=== PATIENT | female | born 1950 | race Caucasian/White ===

== ENCOUNTER 2017-01-14 10:22 | Observation (INO) | payer MEDICARE, BC ==
[~2017-01-14] VITALS: Ht 165.1 cm; Wt 82.2 kg
[~2017-01-14 10:22] MED LIST: ASPI1TAB69 PO; CALCTAB23 PO; FLUTI44I INH; FURO40TA PO; LABE200T2 PO; MAXA5TAB2 PO; METH5TAB7 PO; MIDO5TAB PO; MONT10TA2 PO; MULT1TAB84 PO; PATA0.2S EACH EYE; POTA10TA2 PO; PRIS100T PO; PROT40TA PO; PYRI60 PO; SYMB160A INH; TAMO20TA6 PO; TRAZ150T75 PO; VITA100064 PO; XOPEAER4 INH; ZETI10TA5 PO
[2017-01-14] MEDS: LACTATED RINGER'S 1000 ML IV SCH (11:00)
[2017-01-14] MEDS ORDERED: SODIUM CHLORID 0.9% 500 ML IV SCH (11:00)
[2017-01-14] MEDS ORDERED: VANCOMYCIN HCL 1000 MG ON-CALL/NS 250 ML IV SCH ×2 (11:15)
[2017-01-14] MEDS ORDERED: METOPROLOL TARTRATE 25 MG TAB PO PRN (11:15)
[2017-01-14] MEDS ORDERED: INSULIN HUMAN REGULAR 1,000 UNITS/10 ML VIAL SQ PRN (11:15)
[2017-01-14] MEDS ORDERED: MEST60TA PO (11:17)
[2017-01-14] MEDS ORDERED: TOPA50TA7 PO (11:17)
[2017-01-14] MEDS ORDERED: PRIS100T PO (11:17)
[2017-01-14] MEDS ORDERED: MAXA10TA2 PO (11:17)
[2017-01-14] MEDS ORDERED: ALPH0.1S EACH EYE (11:17)
[2017-01-14] MEDS ORDERED: FLUT50SP EACH NARE (11:35)
[2017-01-14] MEDS ORDERED: LABE200T2 PO (11:36)
[2017-01-14] MEDS ORDERED: MIDO10TA PO (11:36)
[2017-01-14] MEDS ORDERED: LACTCAP8 PO (11:37)
[2017-01-14 11:39] VITALS: BP 123/63; PULSE 75; RESP 16; TEMP 99.8; O2SAT 94
[2017-01-14 11:47] LABS: AUTOMATED NEUTROPHIL # 4.6 TH/MM3 (1.8-7.7); BASOPHIL % 0.3 % (0.0-2.0); EOSINOPHIL % 0.7 % (0.0-4.0); HEMATOCRIT 38.1 % (35.0-46.0); HEMO FLAGS DIFF FINAL; LYMPH % 20.1 % (9.0-44.0); LYMPHOCYTE # 1.3 TH/MM3 (1.0-4.8); MEAN CELL VOLUME 87.3 FL (80.0-100.0); MEAN CORPUSCULAR HEMOGLOBIN 29.1 PG (27.0-34.0); MEAN CORPUSCULAR HGB CONC 33.3 % (32.0-36.0); MONO % 7.3 % (0.0-8.0); NEUT % 71.6 % (16.0-70.0); PLATELET COUNT 191 TH/MM3 (150-450); RED BLOOD COUNT 4.37 MIL/MM3 (4.00-5.30); RED CELL DISTRIBUTION WIDTH 12.9 % (11.6-17.2); WHITE BLOOD COUNT 6.5 TH/MM3 (4.0-11.0)
[2017-01-14] MEDS ORDERED: PHENYLEPH/NS 1000 MCG/10 ML SYR IV ONE (12:00)
[2017-01-14] MEDS ORDERED: PROPOFOL 200 MG/20 ML AMP IV ONE (12:00)
[2017-01-14] MEDS ORDERED: ONDANSETRON HCL 4 MG/2 ML VIAL IV PUSH ONE (12:00)
[2017-01-14] MEDS ORDERED: LIDOCAINE 1%/EPINEPHrine 1:100,000 SOLN 30 ML VIAL ONE (12:12)
[2017-01-14] MEDS ORDERED: BUPIVACAINE/EPINEPHRINE 0.5% PF 30 ML VIAL ONE (12:12)
[2017-01-14] MEDS ORDERED: SODIUM BICARBONATE 8.4% INJ 50 ML ONE (12:12)
[2017-01-14] MEDS ORDERED: LIDOCAINE HCL 1% 50 ML VIAL ONE (12:12)
[2017-01-14] MEDS ORDERED: DEXAMETHASONE SOD PHOS 4 MG/ML VIAL ONE (12:53)
[2017-01-14] MEDS ORDERED: MIDAZOLAM HCL 2 MG/2 ML VIAL ONE (12:53)
--- NOTE | 2017-01-14 14:09 | PD.OP ---
Operative Report Date of Surgery: Jan 14, 2017 Preoperative Diagnosis: RIH, symptomatic Postoperative Diagnosis: same, indirect IH Procedure: open repair RIH with mesh Anesthesia: general, LMA Surgeon: Elpidio Alexander Head Sulfide Operator(s): Cori VOSS Operation and Findings: EBL minimal. Indirect defect with preperitoneal fat protruding through the defect, reduced and broadly covered with progrip mesh. Elpidio Alexander MD Jan 14, 2017 14:09
[2017-01-14] MEDS ORDERED: fentaNYL CITRATE 250 MCG/5 ML AMP ONE (14:11)
[2017-01-14] MEDS ORDERED: SODIUM CHLORIDE 0.9% FLUSH 5 ML FLUSH IVF PRN (14:15)
[2017-01-14] MEDS ORDERED: ONDANSETRON HCL 4 MG/2 ML VIAL IV PRN (14:15)
[2017-01-14] MEDS ORDERED: oxyCODONE/ACETAMINOPHEN 5 MG/325 MG TAB PO PRN (14:15)
[2017-01-14] MEDS ORDERED: Post-op Orders (for Pharmacy) MISC XX ONE (14:15)
[2017-01-14] MEDS ORDERED: RIZATRIPTAN 10 MG PO SCH (14:30)
--- NOTE | 2017-01-14 15:26 | MP ---
cc: KARLOS ABARCA M.D. DATE OF SURGERY: 01/14/2017 PREOPERATIVE DIAGNOSIS Right inguinal hernia, symptomatic. POSTOPERATIVE DIAGNOSIS Right inguinal hernia, symptomatic. Right indirect inguinal hernia. PROCEDURE Open repair of right inguinal hernia with mesh. SURGEON Dr. Karlos Abarca. ORGAN RECOVERY COORDINATOR Cori Muhammad, BIPIN ANESTHESIA General with laryngeal mask. INDICATIONS This is a 66-year-old woman with multiple medical problems, who has a program pacemaker in place, who has developed a symptomatic right inguinal hernia confirmed on FINAL RA[employer] C[employer]TER laparoscopy. She presents for operative repair. Preoperatively the [employer] pacemaker rep was there to appropriately program the pacemaker so that electrocautery could be used. INTRAOPERATIVE FINDINGS No cardiac events. Right indirect inguinal hernia with large amount of preperitoneal fatty tissue protruding through the defect. Defect was broadly covered with ProGrip mesh, anatomic right side. Estimated blood loss minimal. This procedure was assisted by my nurse practitioner. The STITCHING DEPARTMENT SUPERVISOR's skill set was medically necessary to allow for adequate visualization of important anatomic structures to facilitate efficient surgical care of this patient. During the surgery, the surgical instrument repair specialist was at the back table providing appropriate instruments while the nurse practitioner was directly assisting me through the entirety of the case. DESCRIPTION OF PROCEDURE IN DETAIL The patient was identified as Maribell Laguna, taken to the operating room and placed in the supine position. Sequential compression devices were placed on bilateral lower extremities. Following induction of adequate general anesthesia and placement of a laryngeal mask anesthetic, the right groin was prepped and draped in usual sterile fashion with Betadine. A time-out procedure was performed. Following completion of time-out procedure to everyone's satisfaction within the room, proposed right groin incision was made with a marking pen and infiltrated with 0.5% Marcaine with epinephrine. Incision was carried out with scalpel and hemostasis controlled with electrocautery. Dissection continued posteriorly through Myrna's fascia to the level of the external oblique fascia. Through the external inguinal ring a large amount of fatty tissue was protruding. More local anesthetic was placed beneath the external oblique fascial fibers, they were opened in their direction using a scalpel and Metzenbaum scissor. Underlying ilioinguinal nerve branch was reflected inferiorly and avoided. The herniated preperitoneal fatty tissue was reduced from surrounding structures and was able to be reduced through the internal inguinal ring into the preperitoneal space. It was held in this position. The anatomic right-side ProGrip mesh was then brought on the surgical field and placed in position, sutured with 2-0 Vicryl the medial aspect adjacent to the pubic tubercle suture was placed also from the mesh to Alex's ligament and the shelving edge of the inguinal ligament inferiorly. The branch of the ilioinguinal nerve was allowed to pass through the opening of mesh and the superior medial portion of the mesh was fastened to the internal oblique fascia. The lateral portion of the mesh was tucked beneath the external oblique fascial fibers. Irrigation ensued, there was no evidence of bleeding. Remaining local anesthetic was placed in the operative field and around the ilioinguinal nerve. The external oblique fascia was then closed in running fashion overlying the mesh with a running 3-0 Vicryl taking care to avoid any underlying nerve structures. A single 3-0 Vicryl was placed in Myrna's fascia and the skin was approximated with running 4-0 Monocryl subcuticular suture. Dressings were applied, Mastisol, half-inch brown Steri-Strips, gauze and Tegaderm. The patient tolerated the procedure without apparent complication. Sponge, needle and instrument counts were correct at the end of the case. MD TUSHAR Isabel/GABY /2:08 PM /3:07 PM JACINDA
[2017-01-14 17:00] VITALS: BP 112/66; PULSE 70; RESP 18; TEMP 98.5; O2SAT 95
[2017-01-14] MEDS: TOPIRAMATE 25 MG TAB PO SCH (17:45)
[2017-01-14] MEDS: oxyCODONE/ACETAMINOPHEN 5 MG/325 MG TAB PO PRN ×2 (17:54→22:18)
[2017-01-14 20:00] VITALS: BP 110/55; PULSE 70; RESP 20; TEMP 98.8; O2SAT 94
[2017-01-14 20:52] VITALS: PULSE 70
[2017-01-14] MEDS ORDERED: PYRIDOSTIGMINE BROMIDE 60 MG TAB PO SCH ×2 (21:00)
[2017-01-14] MEDS ORDERED: traZODone HCL 50 MG TAB PO SCH (21:00)
[2017-01-14] MEDS ORDERED: MONTELUKAST SODIUM 10 MG TAB PO SCH (21:00)
[2017-01-14] MEDS ORDERED: LEVALBUTEROL INH SCH ×2 (21:00)
[2017-01-14] MEDS ORDERED: BRIMONIDINE OPTH EACH EYE SCH (21:00)
[2017-01-14] MEDS ORDERED: EZETIMIBE 10 MG TAB PO SCH (21:00)
[2017-01-14] MEDS ORDERED: BRIMONIDINE TARTRATE 0.15% OPHT SOLN 5 ML BTL EACH EYE SCH (21:00)
[2017-01-14] MEDS ORDERED: CALCIUM CARBONATE VITAMIN D PO SCH (21:00)
[2017-01-14] MEDS: PANTOPRAZOLE SOD 40 MG DELAYED RELEASE TAB PO SCH (21:40)
[2017-01-14] MEDS: LABETALOL HCL 200 MG TAB PO SCH (21:40)
[2017-01-14] MEDS: CALCIUM/VITAMIN D 250 MG/125 U TAB PO SCH (21:41)
[2017-01-14] MEDS: SODIUM CHLORIDE 0.9% FLUSH 5 ML FLUSH IVF SCH (21:41)
[2017-01-14] MEDS: BUDESONIDE-FORMOTEROL 160/4.5 MCG INHALER INH SCH (22:18)
[2017-01-14] MEDS: BRIMONIDINE TARTRATE 0.15% OPHT SOLN 5 ML BTL EACH EYE SCH (22:18)
[2017-01-15] VITALS: BP 96/44; PULSE 71; RESP 20; TEMP 98.5; O2SAT 94
[2017-01-15 04:00] VITALS: BP 117/62; PULSE 71; RESP 20; TEMP 97.6; O2SAT 95
[2017-01-15] MEDS: LABETALOL HCL 200 MG TAB PO SCH (07:38)
[2017-01-15] MEDS: CALCIUM/VITAMIN D 250 MG/125 U TAB PO SCH (07:38)
[2017-01-15] MEDS: PANTOPRAZOLE SOD 40 MG DELAYED RELEASE TAB PO SCH (07:39)
[2017-01-15] MEDS: TOPIRAMATE 25 MG TAB PO SCH (07:39)
[2017-01-15] MEDS: BRIMONIDINE TARTRATE 0.15% OPHT SOLN 5 ML BTL EACH EYE SCH (07:39)
[2017-01-15] MEDS: BUDESONIDE-FORMOTEROL 160/4.5 MCG INHALER INH SCH (07:40)
[2017-01-15] MEDS: SODIUM CHLORIDE 0.9% FLUSH 5 ML FLUSH IVF SCH (07:40)
[2017-01-15] MEDS ORDERED: PERC5TAB12 PO (07:59)
[2017-01-15 08:00] VITALS: BP 128/61; PULSE 72; RESP 17; TEMP 98.4; O2SAT 95
--- NOTE | 2017-01-15 08:02 | HHI.DS ---
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 CBC/BMP: 01/14/17 1130 Significant Findings Laboratory Tests Test 01/14/17 11:30 Neutrophils (%) (Auto) 71.6 % (16.0-70.0) PE at Discharge Looks great. RIH dressing dry and intact. Hospital Course Arrived through [facility], had pacer rep adjust pacer, had surgery, slow to wake postop, desired overnight stay. Had headache, niow resolved. Has been eating and drinking and has been up to bathroom. She desires DC. Pt Condition on Discharge: Good Discharge Disposition: Discharge Home Discharge Instructions DIET: Follow Instructions for: As Tolerated, No Restrictions Activities you can perform: Shower Only-No Bath Activities to Avoid: Strenuous Activity, Driving Elpidio Alexander MD Jan 15, 2017 08:02
[2017-01-15] MEDS ORDERED: FLUTICASONE PROPIONATE 50 MCG/ACT 16 GM NASAL SPRAY EACH NARE SCH (09:00)
[2017-01-15] MEDS ORDERED: MIDODRINE 5 MG TAB PO SCH (09:00)
[2017-01-15] MEDS ORDERED: [UNRECOGNIZED DRUG - OTHER] PO SCH (09:00)
[2017-01-15] MEDS ORDERED: DESVENLAFAXINE 100 MG PO SCH (09:00)
[2017-01-15] MEDS ORDERED: FUROSEMIDE 40 MG TAB PO SCH (09:00)
[2017-01-15] MEDS ORDERED: MULTIVITAMINS/MINERALS THERAPEUTIC TAB PO SCH (09:00)
[2017-01-15] MEDS ORDERED: TAMOXIFEN CITRATE 10 MG TAB PO SCH (09:00)
[2017-01-15] MEDS ORDERED: POTASSIUM CHLORIDE 10 MEQ CONTROLLED RELEASE TAB PO SCH (09:00)
[2017-01-15] MEDS ORDERED: ASPIRIN EC 81 MG TABEC PO SCH (09:00)
[2017-01-15] MEDS ORDERED: OLOPATADINE EACH EYE SCH (09:00)
[2017-01-15] MEDS ORDERED: OLOPATADINE OPTH EACH EYE SCH (09:00)
[2017-01-15] MEDS ORDERED: LACTOBACILLUS ACIDOPHILUS TAB PO SCH (09:00)
[2017-01-15] MEDS: LACTATED RINGER'S 1000 ML IV SCH (10:43)
[2017-01-15] MEDS: oxyCODONE/ACETAMINOPHEN 5 MG/325 MG TAB PO PRN (11:42)
== END 2017-01-15 11:52 | disposition home or self-care (01) ==
LOC: HSDC 10:22 → N07A 15:50
PROVIDERS: ADMIT Surgery Trauma Surgery; ATTEND Surgery Trauma Surgery
DX: K40.90 Unilateral inguinal hernia, without obstruction or gangrene, not specified as recurrent (principal); I49.8 Other specified cardiac arrhythmias; I10 Essential (primary) hypertension; G47.30 Sleep apnea, unspecified; Z95.0 Presence of cardiac pacemaker; Z85.3 Personal history of malignant neoplasm of breast
CPT/HCPCS: 00830; 49505; 85025; C1781; G0378; J1100; J2250; J2370; J2405; J3010; J3370; J7050; J7120

== ENCOUNTER 2017-11-20 09:23 | Observation (INO) | payer MEDICARE, BC ==
[~2017-11-20] VITALS: Ht 162.6 cm; Wt 80.6 kg
[~2017-11-20 09:23] MED LIST changes: +ALPH0.1S EACH EYE; -ASPI1TAB69 PO; +ASPI81TA23 PO; +CALC500T43 PO; -CALCTAB23 PO; +FLUT50SP EACH NARE; -FLUTI44I INH; +LACTCAP8 PO; +MAXA10TA2 PO; -MAXA5TAB2 PO; +MEST60TA PO; -METH5TAB7 PO; +MIDO10TA PO; -MIDO5TAB PO; -MULT1TAB84 PO; +MULTTAB79 PO; -PYRI60 PO; +TOPA50TA7 PO; -TRAZ150T75 PO; +TRAZ1TAB14 PO; -VITA100064 PO; -ZETI10TA5 PO
[2017-11-20] MEDS ORDERED: METOPROLOL TARTRATE 25 MG TAB PO PRN (09:45)
[2017-11-20] MEDS ORDERED: SODIUM CHLORID 0.9% 500 ML IV PRN (09:45)
[2017-11-20] MEDS ORDERED: CHLORHEXIDINE GLUCONATE 2 % 1 PACK (2 CLOTHS) TOPICAL PRN (09:45)
[2017-11-20] MEDS ORDERED: POVIDONE IODINE 5% (ANTISEPSIS KIT) 4 APPLICATIONS EACH NARE PRN (09:45)
[2017-11-20] MEDS ORDERED: MIRA25TA PO (09:55)
[2017-11-20] MEDS: LACTATED RINGER'S 1000 ML IV PRN ×2 (09:56→13:52)
[2017-11-20] MEDS ORDERED: SUCR1TAB PO (09:57)
[2017-11-20] MEDS ORDERED: AMPICILLIN/SULBAC 3 GM/NS 100 ML IV ONE ×2 (11:00)
[2017-11-20] MEDS ORDERED: ROCURONIUM INJ 50 MG/5 ML SYRINGE IV PUSH ONE (12:00)
[2017-11-20] MEDS ORDERED: PROPOFOL 200 MG/20 ML AMP IV ONE (12:00)
[2017-11-20] MEDS ORDERED: LIDOCAINE HCL 1% PF 5 ML SYRINGE OTHER ONE (12:00)
[2017-11-20] MEDS ORDERED: OXYMETAZOLINE HCL 0.05% 15 ML NASAL SPRAY ONE (12:03)
[2017-11-20] MEDS ORDERED: SUGAMMADEX SODIUM 200 MG/2 ML VIAL IV PUSH ONE (12:51)
[2017-11-20] MEDS ORDERED: *ENALAPRILAT 1.25 MG/ML VIAL PERIprocedural Use ONLY ONE (13:32)
--- NOTE | 2017-11-20 13:46 | EKG ---
Date Performed: 11/20/2017 Time Performed: 09:55:45 PTAGE: 66 years EKG: ELECTRONIC ATRIAL PACEMAKER ELECTRONIC VENTRICULAR PACEMAKER ABNORMAL RHYTHM ECG PREVIOUS TRACING : 09/10/2016 11.14 DOCTOR: Gigi Hobbs Interpretating Date/Time 11/20/2017 13:44:21
[2017-11-20] MEDS ORDERED: *morphine SULFATE 4 MG/ML PERIprocedure ONLY ONE (13:50)
[2017-11-20] MEDS ORDERED: *LABETALOL HCL 100 MG/20 ML VIAL PERIprocedural Use ONLY ONE (13:55)
[2017-11-20] MEDS ORDERED: ONDANSETRON HCL 4 MG/2 ML VIAL IV PUSH PRN (14:30)
[2017-11-20] MEDS ORDERED: DO NOT ADM ANY ANTICOAGULANT DRUGS PRN (14:45)
[2017-11-20 16:00] VITALS: BP 185/86; PULSE 84; RESP 20; TEMP 97.6; O2SAT 93
[2017-11-20 16:31] VITALS: O2SAT 98
[2017-11-20] MEDS ORDERED: LACTATED RINGER'S 1000 ML INJ 1,000 ML IV SCH (17:00)
[2017-11-20] MEDS: TOPIRAMATE 25 MG TAB PO SCH (17:18)
[2017-11-20] MEDS: MORPHINE SULFATE 2 MG/ML INJ IV PUSH PRN ×2 (17:19→22:12)
[2017-11-20 20:00] VITALS: BP 174/79; PULSE 73; RESP 18; TEMP 99.4; O2SAT 97
[2017-11-20] MEDS ORDERED: [UNRECOGNIZED DRUG - OTHER] EACH EYE SCH (21:00)
[2017-11-20] MEDS ORDERED: SUCRALFATE 1 GM TAB PO SCH (21:00)
[2017-11-20] MEDS ORDERED: LEVALBUTEROL INH SCH (21:00)
[2017-11-20] MEDS ORDERED: traZODone HCL 50 MG TAB PO SCH (21:00)
[2017-11-20] MEDS ORDERED: MONTELUKAST SODIUM 10 MG TAB PO SCH (21:00)
[2017-11-20] MEDS ORDERED: PYRIDOSTIGMINE BROMIDE 60 MG TAB PO SCH (21:00)
[2017-11-20] MEDS ORDERED: ALPHAGAN P 0.1% EACH EYE SCH (21:00)
[2017-11-20] MEDS: LABETALOL HCL 200 MG TAB PO SCH (21:06)
[2017-11-20] MEDS: PANTOPRAZOLE SOD 40 MG DELAYED RELEASE TAB PO SCH (21:06)
[2017-11-20] MEDS: CALCIUM/VITAMIN D 250 MG/125 U TAB PO SCH (21:06)
[2017-11-20] MEDS: AMPICILLIN/SULBAC 1500 MG/NS 100 ML IV SCH ×2 (21:15)
[2017-11-20] MEDS: BUDESONIDE-FORMOTEROL 160/4.5 MCG INHALER INH SCH (21:15)
[2017-11-21] VITALS: BP 150/70; PULSE 79; RESP 18; TEMP 99.3; O2SAT 96
[2017-11-21] MEDS: AMPICILLIN/SULBAC 1500 MG/NS 100 ML IV SCH ×2 (04:11)
[2017-11-21] MEDS: MORPHINE SULFATE 2 MG/ML INJ IV PUSH PRN ×2 (05:28→09:53)
[2017-11-21 08:00] VITALS: BP 147/66; PULSE 76; RESP 20; TEMP 99.7; O2SAT 97
[2017-11-21] MEDS: TOPIRAMATE 25 MG TAB PO SCH (08:51)
[2017-11-21] MEDS: BUDESONIDE-FORMOTEROL 160/4.5 MCG INHALER INH SCH (08:52)
[2017-11-21] MEDS: CALCIUM/VITAMIN D 250 MG/125 U TAB PO SCH (08:52)
[2017-11-21] MEDS: PANTOPRAZOLE SOD 40 MG DELAYED RELEASE TAB PO SCH (08:52)
[2017-11-21] MEDS: LABETALOL HCL 200 MG TAB PO SCH (08:52)
[2017-11-21] MEDS ORDERED: TOLTERODINE TARTRATE 2 MG CAP LA PO SCH (09:00)
[2017-11-21] MEDS ORDERED: FUROSEMIDE 40 MG TAB PO SCH (09:00)
[2017-11-21] MEDS ORDERED: TAMOXIFEN CITRATE 10 MG TAB PO SCH (09:00)
[2017-11-21] MEDS ORDERED: ASPIRIN EC 81 MG TABEC PO SCH (09:00)
[2017-11-21] MEDS ORDERED: MULTIVITAMINS/MINERALS THERAPEUTIC TAB PO SCH (09:00)
[2017-11-21] MEDS ORDERED: PRISTIQ 100 MG PO SCH (09:00)
[2017-11-21] MEDS ORDERED: POTASSIUM CHLORIDE 10 MEQ CONTROLLED RELEASE TAB PO SCH (09:00)
[2017-11-21] MEDS ORDERED: [UNRECOGNIZED DRUG - OTHER] PO SCH (09:00)
--- NOTE | 2017-12-09 09:31 | MP ---
cc: JOSH MADISON M.D. DATE OF OPERATION November 20, [address] Josh Madison PREOPERATIVE DIAGNOSES 1. Nasal airway obstruction. 2. Nasal septal deviation. 3. Hypertrophy of inferior turbinates. POSTOPERATIVE DIAGNOSES 1. Nasal airway obstruction. 2. Nasal septal deviation. 3. Hypertrophy of inferior turbinates. OPERATION PERFORMED 1. Open repair nasal septal fracture. 2. Bilateral therapeutic outfracture of inferior turbinates. INDICATIONS Documented in the history and physical. DESCRIPTION OF OPERATION The patient was taken to OR #2 and placed in the supine position. Following induction of general anesthesia and intubation, the nose was packed bilaterally with cotton pledgets saturated in 0.05% Oxymetazoline and the septal mucosa and inferior turbinates were injected with a total of 8 mL of 1% Xylocaine with epinephrine 1:100,000. She was then prepped and draped for surgery. The packing was removed and a hemitransfixion incision was made in the left nasal vestibule and through this incision the septal mucosa was elevated bilaterally as far as the junction of the bony and cartilaginous septum. This revealed the quadrangular cartilage which showed evidence of old septal fracture with numerous fragments extending into the nasal airway bilaterally. A cumulative area of 2 x 2-cm was removed preserving 1.5 cm dorsal and caudal cartilaginous struts. The bony septum was then removed with Andrew-Jami forceps and Michel septal forceps and the maxillary crest was removed using a 6-mm Shailesh chisel. When this was completed the incision was closed using a running suture of 4-0 chromic and the mucosal layers of septum were approximated to each other with a quilting stitch of 4-0 plain gut. The inferior turbinates were then fractured out laterally using a Monty speculum to increase diameter of the nasal airway. The nose was then packed bilaterally with 5.5 cm Rapid Rhino packs. Each was inflated with 5 mL of air and the procedure was terminated. The patient was reversed from anesthesia and taken to Recovery in good condition. There were no complications. Blood loss was 200 mL. MD ARAM Quinones/LAITH /7:53 AM /9:06 AM
== END 2017-11-21 10:10 | disposition home or self-care (01) ==
LOC: HSDC 09:23 → N07A 14:30
PROVIDERS: ADMIT Otolaryngology; ATTEND Otolaryngology
DX: J34.2 Deviated nasal septum (principal); J34.3 Hypertrophy of nasal turbinates; J31.0 Chronic rhinitis; S02.2XXS Fracture of nasal bones, sequela; G47.30 Sleep apnea, unspecified; I10 Essential (primary) hypertension; K21.9 Gastro-esophageal reflux disease without esophagitis; G43.909 Migraine, unspecified, not intractable, without status migrainosus; Z85.3 Personal history of malignant neoplasm of breast
CPT/HCPCS: 00160; 30520; 30930; 93005; 94762; 96365; 96375; 96376; G0378; J0295; J2270; J7120